=== PATIENT | female | born 1995 | race Caucasian/White ===

== ENCOUNTER 2017-06-11 20:36 | Emergency (ER) | payer SELFPAY ==
[2017-06-11 21:18] VITALS: BP 122/70; PULSE 78; RESP 20; TEMP 98.2; O2SAT 98
--- NOTE | 2017-06-11 21:21 | C.PDOC ---
Time Seen by Provider: 06/11/17 20:49 Chief Complaint (Nursing): Lower Extremity Problem/Injury Past Medical History Vital Signs: Last Vital Signs Temp 98.2 F 06/11/17 20:53 Pulse 78 06/11/17 20:53 Resp 20 06/11/17 20:53 BP 122/70 06/11/17 20:53 Pulse Ox 98 06/11/17 20:53 - Social History Hx Alcohol Use: No Hx Substance Use: No ED Course And Treatment O2 Sat by Pulse Oximetry: 98 Disposition Counseled Patient/Family Regarding: Diagnosis, Need For Followup, Rx Given - Disposition Referrals: [facility] [place] [Outside] [facility] [Outside] Disposition: HOME/ ROUTINE Disposition Time: 21:20 Condition: STABLE Additional Instructions: Please follow up with PMD or in clinic Take meds as directed Leg elevation Apply ICE Return to ER if worse Prescriptions: Ibuprofen [Motrin] 600 mg PO Q6H #20 tab Instructions: Ankle Sprain (ED) Print Language: DIVEHI - Clinical Impression Clinical Impression: Ankle sprain
--- NOTE | 2017-06-11 21:23 | C.PDOC ---
History Of Present Illness 21 year old female presents to the ER after she twisted her right ankle while walking earlier today. She states she has been applying ice and analgesic cream with no relief to pain. Denies numbness or weakness. Time Seen by Provider: 06/11/17 20:49 Chief Complaint (Nursing): Lower Extremity Problem/Injury History Per: Patient History/Exam Limitations: no limitations Onset/Duration Of Symptoms: Hrs Current Symptoms Are (Timing): Still Present Recent travel outside of the [place]: No - Ankle/Foot Description Of Injury: Twisted Past Medical History Reviewed: Historical Data, Nursing Documentation, Vital Signs Vital Signs: Last Vital Signs Temp 98.2 F 06/11/17 20:53 Pulse 78 06/11/17 20:53 Resp 20 06/11/17 21:40 BP 122/70 06/11/17 20:53 Pulse Ox 98 06/11/17 21:35 - Medical History PMH: No Chronic Diseases Family History: States: Unknown Family Hx - Social History Hx Alcohol Use: No Hx Substance Use: No Review Of Systems Musculoskeletal: Positive for: Foot Pain Neurological: Negative for: Weakness, Numbness Physical Exam - Physical Exam Appears: Non-toxic, No Acute Distress Skin: Normal Color, Warm, Dry Head: Atraumatic, Normacephalic Eye(s): bilateral: Normal Inspection Extremity: Other (Tenderness and swelling to the right lateral malleolus. ROM of right ankle causes pain.) Neurological/Psych: Oriented x3, Normal Speech, Normal Motor, Normal Sensation Gait: Steady (Pain with ambulation) ED Course And Treatment O2 Sat by Pulse Oximetry: 98 (room air) Pulse Ox Interpretation: Normal - Other Rad Right ankle x-ray X-Ray: Interpreted by Me, Viewed By Me Interpretation: No acute fractures or dislocations. Progress Note: Right ankle x-ray ordered, results were negative. Patient reports taking ibuprofen prior to arrival and is refusing further pain medication, she was placed in an naveen wrap by RN and given crutches with instructions for nonweight bearing and instructed to follow up with clinic. Disposition Counseled Patient/Family Regarding: Diagnosis, Need For Followup, Rx Given - Disposition Referrals: [facility] [Outside] [facility] [place] [Outside] Disposition: HOME/ ROUTINE Disposition Time: 21:20 Condition: STABLE Additional Instructions: Please follow up with PMD or in clinic Take meds as directed Leg elevation Apply ICE Return to ER if worse Prescriptions: Ibuprofen [Motrin] 600 mg PO Q6H #20 tab Instructions: Ankle Sprain (ED) Forms: [employer] (Swedish) Print Language: BURKINAN - Clinical Impression Clinical Impression: Ankle sprain - PA / FIREARMS INSTRUCTOR / Resident Statement MD/DO has reviewed & agrees with the documentation as recorded. - Scribe Statement The provider has reviewed the documentation as recorded by the Scribmichelle Pugh All medical record entries made by the Azeemibmichelle were at my direction and personally dictated by me. I have reviewed the chart and agree that the record accurately reflects my personal performance of the history, physical exam, medical decision making, and the department course for this patient. I have also personally directed, reviewed, and agree with the discharge instructions and disposition.
--- NOTE | 2017-06-12 08:34 | RAD ---
PROCEDURE: Right Ankle Radiographs. HISTORY: pain, twisting injury COMPARISON: None FINDINGS: BONES: Normal. No fracture. JOINTS: Normal. No osteoarthritis. Ankle mortise maintained. Talar dome intact SOFT TISSUES: [id number] soft tissue swelling seen more prominent at the lateral malleolus. OTHER FINDINGS: None. IMPRESSION: No evidence of acute fracture or dislocation. Soft tissue swelling seen more prominent at the lateral aspect of the right ankle.
== END 2017-06-11 21:40 | disposition home or self-care (01) ==
LOC: C.ER 20:36 → EDBD 20:36 → C.ER 21:40
DX: S93.401A Sprain of unspecified ligament of right ankle, initial encounter (principal); X50.9XXA Other and unspecified overexertion or strenuous movements or postures, initial encounter